=== PATIENT | male | born 1960 | race Caucasian/White ===

== ENCOUNTER 2018-05-09 18:08 | Emergency (ER) | payer OTHER ==
[2018-05-09] MEDS ORDERED: DIPHENHYDRAMINE 25 MG CAP PO ONE (18:17)
[2018-05-09] MEDS ORDERED: PREDNISONE 10 MG TAB PO ONE (18:17)
[2018-05-09] MEDS ORDERED: DIPHENHYDRAMINE 25 MG CAP ONE (18:18)
[2018-05-09] MEDS ORDERED: PREDNISONE 20 MG TAB ONE (18:18)
[2018-05-09] MEDS ORDERED: PREDNISONE 5 MG TAB ONE (18:19)
[2018-05-09 18:27] VITALS: RESP 18; TEMP 98.5
[2018-05-09 20:00] VITALS: BP 136/79; PULSE 66; O2SAT 95
== END 2018-05-09 18:42 | DRG 916 ==
LOC: ED 18:08
DX: T78.40XA Allergy, unspecified, initial encounter (principal); W05.0XXA Fall from non-moving wheelchair, initial encounter; Y92.129 Unspecified place in nursing home as the place of occurrence of the external cause
CPT/HCPCS: 99282; A9270-GY

== ENCOUNTER 2018-05-14 01:30 | Emergency (ER) | payer OTHER ==
[2018-05-14 01:36] VITALS: RESP 18; TEMP 98.6
[2018-05-14 02:03] VITALS: BP 113/64; PULSE 70; O2SAT 98
[2018-05-14] MEDS ORDERED: PREDNISONE 20 MG TAB PO ONE (02:05)
[2018-05-14] MEDS ORDERED: APAP/HYDROCODONE 1 EACH TABLET PO ONE (02:06)
[2018-05-14] MEDS ORDERED: PREDNISONE 20 MG TAB ONE (02:09)
[2018-05-14] MEDS ORDERED: APAP/HYDROCODONE 1 EACH TABLET ONE (02:09)
== END 2018-05-14 11:40 | DRG 93 ==
LOC: ED 01:30
DX: G89.29 Other chronic pain (principal)
CPT/HCPCS: 99282; 99284; A9270-GY

== ENCOUNTER 2018-05-16 09:00 | Emergency (ER) | payer OTHER ==
[2018-05-16 09:10] VITALS: RESP 20
[2018-05-16 09:27] LABS: LACTIC ACID 2.2 mMol/L (0.0-2.0)
[2018-05-16 09:34] LABS: INFLUENZA A NEGATIVE (NEGATIVE); INFLUENZA B NEGATIVE (NEGATIVE)
[2018-05-16 09:38] LABS: ALBUMIN 3.3 gm/dl (3.4-5.0); BILIRUBIN,TOTAL 0.5 mg/dl (0.2-1.0); CALCIUM 8.6 mg/dl (8.5-10.1); CARBON DIOXIDE 26.5 mEq/L (21-32); CREATININE 0.97 mg/dl (0.80-1.30); POTASSIUM 3.9 mMol/L (3.5-5.1); TOTAL PROTEIN 7.4 gm/dl (6.4-8.2)
[2018-05-16 10:36] LABS: BASOPHILS % (AUTO) 1 % (0-3); EOSINOPHILS % (AUTO) 0 % (0-9); HEMATOCRIT 36 % (39-53); HEMOGLOBIN 11.6 gm/dl (13.5-17.7); MEAN CORPUSCULAR HEMOGLOBIN 32.6 pg (27.0-32.0); MEAN CORPUSCULAR HGB CONC 32.2 gm/dl (32.0-36.0); MONOCYTES % (AUTO) 6.4 % (0-12); NEUTROPHILS % (AUTO) 89.4 % (37-80)
[2018-05-16 10:39] LABS: MEAN CORPUSCULAR VOLUME 101 fL (80-100)
[2018-05-16] MEDS ORDERED: AZITHROMYCIN 250 MG TAB PO ONE (10:53)
[2018-05-16] MEDS ORDERED: AZITHROMYCIN 250 MG TAB ONE (11:06)
[2018-05-16 11:13] VITALS: BP 137/82; PULSE 83; TEMP 98.6; O2SAT 95
== END 2018-05-16 11:43 | DRG 153 ==
LOC: ED 09:00
DX: J06.9 Acute upper respiratory infection, unspecified (principal); R06.02 Shortness of breath; R05 Cough; R50.9 Fever, unspecified
CPT/HCPCS: 36415; 71045; 80053; 85025; 87804; 99283; A9270-GY